=== PATIENT | female | born 1955 | race Caucasian/White ===

== ENCOUNTER 2017-10-29 11:57 | Emergency (ER) | payer BC ==
[2017-10-29 14:08] VITALS: BP 141/66
--- NOTE | 2017-10-29 14:35 | UC ---
Skin Complaint HPI - HPI Summary HPI Summary: crusty rash around lips that is worsening no relief with otc treatments---does not feel like a cold sore at all - History of Current Complaint Chief Complaint: UCSkin Time Seen by Provider: 10/29/17 14:15 Stated Complaint: SKIN COMPLAINT(LIPS) X 6 DAYS Hx Obtained From: Patient ?: No Onset/Duration: Gradual Onset, Lasting Weeks - 1, Still Present, Worse Since - getting worse daily Timing: Constant Pain Intensity: 6 Pain Scale Used: 0-10 Numeric Location: Discrete Character: Pain, Redness - honey crusted drainage Aggravating Factor(s): Nothing Alleviating Factor(s): Nothing Associated Signs & Symptoms: Positive: Rash - honey crusting rash around lips - Allergy/Home Medications Allergies/Adverse Reactions: Allergies Allergy/AdvReac Type Severity Reaction Status Date / Time No Known Allergies Allergy Verified 10/29/17 14:08 Home Medications: Home Medications Aspirin [Ecotrin Low Strength] 81 mg PO DAILY 10/29/17 [History Confirmed ] Cholecalciferol TAB* [Vitamin D TAB*] 400 mg PO DAILY 10/29/17 [History Confirmed 10/29/17] Docusate Sodium 100 mg PO DAILY 10/29/17 [History Confirmed 10/29/17] Ferrous Sulfate 325 mg PO DAILY 10/29/17 [History Confirmed 10/29/17] Metformin HCl [Fortamet] 1,000 mg PO DAILY 10/29/17 [History Confirmed 10/29/17] Omeprazole 20 mg PO DAILY 10/29/17 [History Confirmed 10/29/17] Sertraline HCl [Zoloft] 50 mg PO DAILY 10/29/17 [History Confirmed 10/29/17] Simvastatin 20 mg PO DAILY 10/29/17 [History Confirmed 10/29/17] Review of Systems Constitutional: Negative Skin: Rash Eyes: Negative ENT: Negative Respiratory: Negative Cardiovascular: Negative Gastrointestinal: Negative Genitourinary: Negative Motor: Negative Neurovascular: Negative Musculoskeletal: Negative Neurological: Negative Psychological: Negative Is Patient Immunocompromised?: No All Other Systems Reviewed And Are Negative: Yes PMH/Surg Hx/FS Hx/Imm Hx Previously Healthy: No Endocrine History: Diabetes - FSB sugars are about 140 GI/ History: Gastroesophageal Reflux - Surgical History Surgical History: Yes Surgery Procedure, Year, and Place: X2 - Family History Known Family History: Positive: None - Social History Occupation: Unemployed Lives: With Family Alcohol Use: Occasionally Substance Use Type: None Smoking Status (MU): Never Smoked Tobacco Physical Exam Triage Information Reviewed: Yes Appearance: No Pain Distress, Well-Nourished, Ill-Appearing - mild Vital Signs: Initial Vital Signs Temp 98 F 10/29/17 14:03 Pulse 88 10/29/17 14:03 Resp 16 10/29/17 14:03 BP 141/66 10/29/17 14:03 Pulse Ox 97 10/29/17 14:03 Vital Signs Reviewed: Yes Eye Exam: Normal Eyes: Positive: Conjunctiva Clear ENT Exam: Normal ENT: Positive: Normal ENT inspection, Hearing grossly normal, Pharynx normal, TMs normal, Uvula midline, Other - no evidence of thrush. Negative: Nasal congestion, Trismus, Muffled voice, Hoarse voice, Dental tenderness, Sinus tenderness Dental Exam: Normal Neck exam: Normal Neck: Positive: Supple, Nontender, No Lymphadenopathy Respiratory Exam: Normal Respiratory: Positive: Chest non-tender, No respiratory distress, No accessory muscle use Cardiovascular Exam: Normal Cardiovascular: Positive: Pulses Normal, Brisk Capillary Refill Musculoskeletal Exam: Normal Musculoskeletal: Positive: Strength Intact, ROM Intact, No Edema Neurological Exam: Normal Neurological: Positive: Alert, Muscle Tone Normal Psychological Exam: Normal Skin: Positive: Other - open areas with honey crusting on lips Course/Dx - Course Course Of Treatment: stop all otc treatments-with bactroban 2-3 times a day if worsens or fails to improve follow with pcp or return as needed---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 - Diagnoses Provider Diagnoses: impetigo, elevated blood pressure without diagnosis of hypertension Discharge - Sign-Out/Discharge Documenting (check all that apply): Patient Departure All imaging exams completed and their final reports reviewed: Yes - Discharge Plan Condition: Stable Disposition: HOME Prescriptions: Mupirocin 2% OINT* [Bactroban 2 % Oint*] 1 applic TOPICAL TID #1 tube Patient Education Materials: Impetigo (ED), Hypertension (ED) Referrals: No Primary Care Phys,NOPCP [Primary Care Provider] - Additional Instructions: Your blood pressure to today is elevated--we recommend you get this rechecked in the next 2-4 weeks. If your rash worsens or fails to improve follow with your primary care in [place] or return as needed - Billing Disposition and Condition Condition: STABLE Disposition: Home
== END 2017-10-29 14:43 | disposition home or self-care (01) ==
LOC: UCCORT 11:57
DX: L01.00 Impetigo, unspecified (principal); R03.0 Elevated blood-pressure reading, without diagnosis of hypertension; E11.9 Type 2 diabetes mellitus without complications; Z79.84 Long term (current) use of oral hypoglycemic drugs; K21.9 Gastro-esophageal reflux disease without esophagitis
CPT/HCPCS: 99202; G0463